=== PATIENT | female | born 1990 | race Hispanic/Latino ===

== ENCOUNTER 2021-01-18 21:24 | Day surgery (SDC) | payer MEDICAID, OTHER ==
[2021-01-18] MEDS ORDERED: hydrALAZINE 20 MG/ML VIAL SLOW IVP PRN (22:40)
== END 2021-01-19 00:08 | disposition home or self-care (01) ==
LOC: CSHLD/OP 21:24 → CSHERS 21:24 → CSHLD/OP 01-19 00:08
PROVIDERS: ATTEND Obstetrics & Gynecology
DX: O47.1 False labor at or after 37 completed weeks of gestation (principal); O09.293 Supervision of pregnancy with other poor reproductive or obstetric history, third trimester; Z3A.38 38 weeks gestation of pregnancy
CPT/HCPCS: 99283

== ENCOUNTER 2021-01-19 02:56 | Inpatient (IN) | payer MEDICAID, OTHER, SELFPAY ==
[2021-01-19] MEDS ORDERED: Carboprost 250 MCG/ML AMP IM PRN (03:53)
[2021-01-19] MEDS ORDERED: hydrALAZINE 20 MG/ML VIAL SLOW IVP PRN ×2 (03:53→09:04)
[2021-01-19] MEDS ORDERED: Methylergonovine 0.2 MG/ML VIAL IM PRN ×2 (03:53→09:04)
[2021-01-19] MEDS ORDERED: Acetaminophen 500 MG TAB PO PRN (03:53)
[2021-01-19] MEDS ORDERED: Promethazine HCl 25 MG/ML VIAL IM PRN (03:53)
[2021-01-19] MEDS ORDERED: Ibuprofen 800 MG TAB PO PRN (03:53)
[2021-01-19] MEDS ORDERED: Butorphanol Tartrate 1 MG/ML VIAL SLOW IVP PRN (03:53)
[2021-01-19] MEDS ORDERED: Misoprostol 200 MCG TAB PR PRN (03:53)
[2021-01-19] MEDS ORDERED: Lidocaine 1% (PF) 30 ML VIAL SC PRN (03:53)
[2021-01-19] MEDS ORDERED: NS / Oxytocin 40 units/1000ml 1,000 ML IV PRN (03:53)
[2021-01-19] MEDS ORDERED: Docusate 100 MG CAP PO PRN (03:53)
[2021-01-19] MEDS ORDERED: Ondansetron PF 4 MG/2 ML Vial IVP PRN ×2 (03:53→09:04)
[2021-01-19] MEDS ORDERED: Lactated Ringer's 1,000 ML IV SCH (04:00)
[2021-01-19 04:37] LABS: Hemoglobin 14.6 g/dL (12.0-15.5); Mean Corpuscular HGB CONC 35.3 g/dL (32.0-36.0); Mean Corpuscular Hemoglobin 29.7 pg (27.0-33.0); Mean Corpuscular Volume 84.1 fl (81.6-98.3); Mean Platelet Volume 11.3 fl (7.4-10.4); Platelet Count 239 10x3/uL (150-450); RBC Distribution Width 13.3 % (11.5-14.5); Red Blood Cell (RBC) Count 4.92 10x6/uL (3.90-5.03); White Blood Cell (WBC) Count 7.5 10x3/uL (3.5-10.5)
[2021-01-19 05:01] LABS: Hep B Surf Ag Non-Reactive S/CO (NonReactive)
[2021-01-19 05:06] LABS: HBSAg Index 0.21 S/CO (0-0.99)
[2021-01-19 05:09] LABS: Syphilis Antibody Nonreactive (Nonreactive); Syphilis Antibody Index 0.05 S/CO (<1.00 Non-Reactive)
[2021-01-19] MEDS ORDERED: Fentanyl 4 mcg/Bup 0.1% Cadd 100 ML ONE (05:33)
[2021-01-19] MEDS ORDERED: NS w/ Oxytocin 30 units 500 ML ONE ×2 (06:14→07:04)
[2021-01-19] MEDS ORDERED: NS w/ Oxytocin 30 units 500 ML IV SCH (07:45)
[2021-01-19] MEDS ORDERED: NS w/ Oxytocin 30 units 500 ML IVPB SCH ×2 (07:45→09:30)
[2021-01-19] MEDS ORDERED: Adacel (T-DAP) 0.5 ML SYRINGE IM ONE (09:04)
[2021-01-19] MEDS ORDERED: Bisacodyl 10 MG SUPP PR PRN (09:04)
[2021-01-19] MEDS ORDERED: Benzocaine-Menthol 82.5 ML CAN TOP PRN (09:04)
[2021-01-19] MEDS ORDERED: Milk Of Magnesia 30 ML UDCUP PO PRN (09:04)
[2021-01-19] MEDS ORDERED: Misoprostol 200 MCG TAB VAG PRN (09:04)
[2021-01-19] MEDS ORDERED: Preparation H Ointment 28 GM TUBE PR PRN (09:04)
[2021-01-19] MEDS ORDERED: Lanolin Ointment 7 GM TUBE TOP PRN (09:04)
[2021-01-19] MEDS ORDERED: Ferrous Sulfate 325 MG TAB PO SCH (09:30)
[2021-01-19] MEDS ORDERED: Prenatal Vitamin 1 TAB PO SCH (09:30)
[2021-01-19] MEDS ORDERED: Docusate Calcium (SURFAK) 240 MG CAP PO SCH ×2 (09:30→21:00)
[2021-01-19] MEDS: Ibuprofen 800 MG TAB PO SCH ×2 (13:31→20:58)
[2021-01-19 13:34] LABS: SARS-CoV-2 PCR by NAA Not Detected (NotDetected)
[2021-01-19] MEDS: Ferrous Sulfate 325 MG TAB PO SCH (17:07)
[2021-01-19] MEDS ORDERED: Bupivacaine 0.25% HCL 30 ML VIAL ONE (19:47)
[2021-01-20] MEDS: Ibuprofen 800 MG TAB PO SCH (05:11)
[2021-01-20] MEDS ORDERED: Prenatal Vitamin 1 TAB PO SCH (09:00)
[2021-01-20 09:12] VITALS: BP 103/71; TEMP 97.3
[2021-01-20] MEDS: Ferrous Sulfate 325 MG TAB PO SCH (09:58)
== END 2021-01-20 11:35 | disposition home or self-care (01) | DRG 807 ==
LOC: CSHLD/OP 02:56 → CSHERS 02:56 → CSHLD 04:24 → CSHPED 09:20
PROVIDERS: ADMIT Obstetrics & Gynecology; ATTEND Obstetrics & Gynecology
PROC: 10E0XZZ Delivery of Products of Conception, External Approach (ICD-10-PCS; principal; 2021-01-19)
DX: O99.344 Other mental disorders complicating childbirth (principal); Z37.0 Single live birth; Z3A.38 38 weeks gestation of pregnancy; F43.20 Adjustment disorder, unspecified; Z20.822 Contact with and (suspected) exposure to COVID-19; Z82.0 Family history of epilepsy and other diseases of the nervous system
CPT/HCPCS: 36415; 85027; 86780; 86850; 86900; 86901; 87340; 87635; 99285; J0595; J2405; J2590; S0020; U0003; U0005